=== PATIENT | male | born 1955 | race Hispanic/Latino ===

== ENCOUNTER → 2018-01-16 | Outpatient (CLI) | payer OTHER ==
[~2018-01-16] MED LIST: FENOFIBRATE PO; INSU100I13 SQ; LISI1TAB13 PO; LOVA40TA2 PO; METF-445 PO
== END | disposition home or self-care (01) ==
LOC: OIH 14:49
PROVIDERS: ATTEND Internal Medicine
DX: M25.512 Pain in left shoulder (principal); E11.9 Type 2 diabetes mellitus without complications
CPT/HCPCS: 73030